=== PATIENT | female | born 1965 ===

== ENCOUNTER 2016-10-20 19:24 | Emergency (ER) | payer OTHER ==
[2016-10-20 19:35] VITALS: BMI 27.4
[2016-10-20 19:40] VITALS: BP 141/92; PULSE 62; RESP 18; TEMP 97.8; O2SAT 98
--- NOTE | 2016-10-20 20:11 | ED PDOC ---
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 Patient states 5 days ago she woke up with swelling redness and pruritus to both eyes. She denies new soaps lotions or detergents perfumes or medications. She denies recently dying her hair. Patient denies contact with animals. Patient denies any prior allergies to dogs/cats/environment. Patient denies pain in the eyes. She describes an irritation/burning sensation to both eyes as if something is in the eye. She denies contact usage. She denies any headache dizziness or weakness. She denies blurry vision. Patient states she had swelling to the eyes in the morning which has since decreased. Denies fevers or chills. Patient states she used drops to get the red out. She denies any other complaints Time/Duration: Other (5 days) Symptom Course: Unchanged Quality: Burning Severity Level: 2 Past Medical History - Provider Review Nursing Documentation Reviewed: Yes - Travel History Have you recently traveled outside [place] w/in the past 3 mons?: No - Past History Past History: No Previous - Infectious Disease Hx of Infectious Diseases: None - Reproductive Menopause: Yes - Cardiac Hx Cardiac Disorders: Yes Hx Hypertension: Yes - Pulmonary Hx Respiratory Disorders: No - Neurological Hx Neurological Disorder: No - HEENT Hx HEENT Disorder: No - Renal Hx Renal Disorder: Yes Other/Comment: Renal cyst - Endocrine/Metabolic Hx Diabetes Mellitus Type 2: Yes - Hematological/Oncological Hx Blood Disorders: No - Integumentary Hx Dermatological Disorder: No - Musculoskeletal/Rheumatological Hx Musculoskeletal Disorders: No - Gastrointestinal Hx Gastroesophageal Reflux: Yes Other/Comment: Gastric bypass. Liver problems. Transaminitis. Fatty Liver - Genitourinary/Gynecological Hx Genitourinary Disorders: Yes Other/Comment: Hysterectomy - Psychiatric Hx Psychophysiologic Disorder: No Hx Anxiety: No Hx Bipolar Disorder: No Hx Depression: Yes Hx Emotional Abuse: No Hx Hallucinations: No Hx Panic Disorder: No Hx Post Traumatic Stress Disorder: No Hx Psychosis: No Hx Physical Abuse: No Hx Schizophrenia: No Hx Sexual Abuse: No Hx Substance Use: No - Past Surgical History Past Surgical History: No Previous - Surgical History Hx Gastric Bypass Surgery: Yes (07/04) Hx Hysterectomy: Yes Other/Comment: OVARIES REMOVED - Anesthesia Hx Anesthesia: Yes Hx Anesthesia Reactions: No Hx Malignant Hyperthermia: No - Suicidal Assessment Feels Threatened In Home Enviroment: No Family/Social History - Physician Review Nursing Documentation Reviewed: Yes Family/Social History: Unknown Family HX Smoking Status: Never Smoked Hx Alcohol Use: No Hx Substance Use: No Hx Substance Use Treatment: No Allergies/Home Meds Allergies/Adverse Reactions: Allergies Penicillins Adverse Reaction (Verified 10/20/16 19:35) ANAPHYLAXIS Home Medications: Home Meds Medication Instructions Recorded Confirmed Amlodipine Besylate [Norvasc] 5 mg PO DAILY 05/23/12 08/25/15 FLUoxetine [Fluoxetine HCl] 20 mg PO DAILY 05/23/12 08/25/15 Lisinopril 40 mg PO DAILY 05/23/12 08/25/15 Metformin HCl [Metformin] 500 mg PO DAILY 05/23/12 08/25/15 Metoprolol Tartrate 100 mg PO DAILY 05/23/12 08/25/15 Pravastatin Sodium [Pravastatin] 20 mg PO HS 05/23/12 08/25/15 Ergocalciferol [Vitamin D] 1 tab PO Q7D 12/27/14 08/25/15 Sitagliptin Phosphate [Januvia] 100 mg PO DAILY 12/27/14 08/25/15 Insulin Glargine,Hum.rec.anlog 18 units SC HS 03/02/15 08/25/15 [Lantus] Insulin Lispro, Recombinant 6 units SC AC 03/02/15 08/25/15 [Humalog] Liraglutide [Victoza] 0.6 ml SC DAILY 03/02/15 08/25/15 Review of Systems - Review of Systems Constitutional: absent: Fatigue, Fevers Eyes: Eye Pain (eye irritation). absent: Vision Changes, Photophobia ENT: absent: Hearing Changes, Sore Throat, Sinus Congestion Respiratory: absent: SOB, Cough Cardiovascular: absent: Chest Pain, Palpitations Gastrointestinal: absent: Abdominal Pain, Nausea, Vomiting Genitourinary Female: absent: Dysuria Musculoskeletal: absent: Arthralgias Skin: Pruritis (both eyes). absent: Rash Psychiatric: absent: Anxiety, Depression Physical Exam Vital Signs Reviewed: Yes Vital Signs Temp Pulse Resp BP Pulse Ox 10/20/16 19:40 97.8 F 62 18 141/92 H 98 Temperature: Afebrile Blood Pressure: Hypertensive Pulse: Regular Respiratory Rate: Normal Appearance: Positive for: Well-Appearing, Non-Toxic, Comfortable Pain Distress: None Mental Status: Positive for: Alert and Oriented X 3 - Systems Exam Head: Present: Atraumatic Pupils: Present: PERRL Extroacular Muscles: Present: EOMI Conjunctiva: Present: Normal, Other (no corneal abrasion, no corneal ulceration , no dye uptake. no periorbital edema or erythema. ). No: Injected Ears: Present: Normal, NORMAL TM Mouth: Present: Moist Mucous Membranes Pharnyx: Present: Normal. No: ERYTHEMA, EXUDATE Nose (Internal): Present: Normal Inspection Neck: Present: Normal Range of Motion Respiratory/Chest: Present: Clear to Auscultation Cardiovascular: Present: Regular Rate and Rhythm Neurological: Present: GCS=15 Skin: Present: Warm, Dry, Normal Color. No: Rashes Psychiatric: Present: Alert, Oriented x 3 Medical Decision Making ED Course and Treatment: 10/20/16 20:17 Patient is nontoxic well appearing in no distress Visual acuity within normal limits bilateral eyes; no Conjunctival injection noted, no corneal abrasion or ulceration noted. no dye uptake. no periorbital edema. PERRLA, extraocular muscles intact will treat patient for conjunctivitis; will give abx and allergy eye drops; advised f/u with eye doctor within the next 2 days. return immediately if symptoms worsen,persist or if new symptoms develop. Patient verbalizes understanding of discharge instructions and need for immediate followup. all aspects of this case were discussed the attending of record. Impression: Conjunctivitis Tobrex: 2 drops in the affected eye 4 times daily x 7 days. Patanol; 1 drop in both eyes twice daily. Followup with the eye doctor within the next 2 days Return immediately if symptoms worsen persist or if new symptoms develop; blurry vision, worsening eye pain, worsening redness or any other concerning symptoms develop. Follow up with the primary care physician within the next 2 days Disposition/Present on Arrival - Present on Arrival Any Indicators Present on Arrival: No History of DVT/PE: No History of Uncontrolled Diabetes: No Urinary Catheter: No History of Decub. Ulcer: No History Surgical Site Infection Following: None - Disposition Have Diagnosis and Disposition been Completed?: Yes Diagnosis: Conjunctivitis Disposition: HOME/ ROUTINE Disposition Time: 20:24 Patient Plan: Discharge Condition: GOOD Discharge Instructions (ExitCare): Conjunctivitis (ED) Additional Instructions: Tobrex: 2 drops in the affected eye 4 times daily x 7 days. Patanol; 1 drop in both eyes twice daily. Followup with the eye doctor within the next 2 days Return immediately if symptoms worsen persist or if new symptoms develop; blurry vision, worsening eye pain, worsening redness or any other concerning symptoms develop. Follow up with the primary care physician within the next 2 days Prescriptions: Olopatadine 0.1% Opht [Patanol 5 Ml] 1 drop OU BID #1 bottle Tobramycin 0.3% [Tobramycin 5 Ml] 2 drop OU QID #1 bottle Referrals: Mark DE LA CRUZ,Ayde Garcia MD [Primary Care Provider] - Follow up with primary Roddy Carballo MD [Staff Provider] - Follow up with primary Forms: [employer] (Serbian), WORK NOTE
== END 2016-10-20 20:32 | disposition home or self-care (01) ==
LOC: ED 19:24
DX: H10.9 Unspecified conjunctivitis (principal)

== ENCOUNTER 2017-08-21 18:08 | Emergency (ER) | payer OTHER ==
[2017-08-21 18:26] VITALS: BMI 31.1
--- NOTE | 2017-08-21 18:26 | ED PDOC ---
Arrival/HPI - General Time Seen by Provider: 08/21/17 18:13 Historian: Patient - History of Present Illness Narrative History of Present Illness (Text): 08/21/17 18:23 52 y/o female, pmh including htn/hyperlipidemia/dm, post menopausal, penicillin allergy, c/o lower back/neck pain/headache s/p fall about 3 days ago. Pt. stated that she had a slipped and fall accident about 3 days ago, injured the lower back with and neck region with possible head injury which she had headache but resolved. Pt. stated for the past 2 days she noticed she abnormal movement of the rt. hand thumb region with no hand pain, no numbness or tingling , no change in vision, not shaking when active to perform grabbing an object. Pt. has no urinary or bowel incontinence or retention, no night sweat, no rash, no change in vision, no other medical or psychological complaints. Past Medical History - Provider Review Nursing Documentation Reviewed: Yes - Past History Past History: No Previous - Infectious Disease Hx of Infectious Diseases: None - Cardiac Hx Cardiac Disorders: Yes Hx Hypertension: Yes - Pulmonary Hx Respiratory Disorders: No - Neurological Hx Neurological Disorder: No - HEENT Hx HEENT Disorder: No - Renal Hx Renal Disorder: Yes Other/Comment: Renal cyst - Endocrine/Metabolic Hx Diabetes Mellitus Type 2: Yes - Hematological/Oncological Hx Blood Disorders: No - Integumentary Hx Dermatological Disorder: No - Musculoskeletal/Rheumatological Hx Musculoskeletal Disorders: No - Gastrointestinal Hx Gastroesophageal Reflux: Yes Other/Comment: Gastric bypass. Liver problems. Transaminitis. Fatty Liver - Genitourinary/Gynecological Hx Genitourinary Disorders: Yes Other/Comment: Hysterectomy - Psychiatric Hx Psychophysiologic Disorder: No Hx Anxiety: No Hx Bipolar Disorder: No Hx Depression: Yes Hx Emotional Abuse: No Hx Hallucinations: No Hx Panic Disorder: No Hx Post Traumatic Stress Disorder: No Hx Psychosis: No Hx Physical Abuse: No Hx Schizophrenia: No Hx Sexual Abuse: No Hx Substance Use: No - Past Surgical History Past Surgical History: No Previous - Surgical History Hx Gastric Bypass Surgery: Yes (07/04) Hx Hysterectomy: Yes Other/Comment: OVARIES REMOVED - Anesthesia Hx Anesthesia: Yes Hx Anesthesia Reactions: No Hx Malignant Hyperthermia: No - Suicidal Assessment Feels Threatened In Home Enviroment: No Family/Social History - Physician Review Nursing Documentation Reviewed: Yes Family/Social History: Unknown Family HX Smoking Status: Never Smoked Hx Alcohol Use: No Hx Substance Use: No Hx Substance Use Treatment: No Allergies/Home Meds Allergies/Adverse Reactions: Allergies Penicillins Adverse Reaction (Verified 10/20/16 19:35) ANAPHYLAXIS Home Medications: Home Meds Medication Instructions Recorded Confirmed FLUoxetine [Fluoxetine HCl] 20 mg PO DAILY 05/23/12 08/21/17 Metformin HCl [Metformin] 500 mg PO DAILY 05/23/12 08/21/17 Sitagliptin Phosphate [Januvia] 100 mg PO DAILY 12/27/14 08/21/17 Insulin Glargine,Hum.rec.anlog 18 units SC HS 03/02/15 08/21/17 [Lantus] Liraglutide [Victoza] 0.6 ml SC DAILY 03/02/15 08/21/17 Review of Systems - Review of Systems Constitutional: absent: Fatigue, Fevers Eyes: absent: Vision Changes ENT: absent: Hearing Changes Respiratory: absent: SOB, Cough Cardiovascular: absent: Chest Pain Gastrointestinal: absent: Abdominal Pain, Nausea, Vomiting Musculoskeletal: Back Pain, Neck Pain. absent: Arthralgias, Myalgias Skin: absent: Rash, Pruritis Neurological: absent: Headache, Dizziness Psychiatric: absent: Anxiety, Depression, Suicidal Ideation Physical Exam Vital Signs Reviewed: Yes Vital Signs Temp Pulse Resp BP Pulse Ox 08/21/17 18:13 97.1 F L 88 16 125/92 H 96 Temperature: Afebrile Blood Pressure: Hypertensive Pulse: Regular Respiratory Rate: Normal Appearance: Positive for: Well-Appearing, Non-Toxic, Comfortable Pain Distress: Mild Mental Status: Positive for: Alert and Oriented X 3 - Systems Exam Head: Present: Atraumatic, Normocephalic. No: Tenderness, Contusion, Swelling, Ecchymosis, Abrasion, Laceration, Other Pupils: Present: PERRL Extroacular Muscles: Present: EOMI Conjunctiva: Present: Normal Ears: Present: NORMAL TM, Normal Canal. No: Erythema Mouth: Present: Moist Mucous Membranes Pharnyx: Present: Normal. No: ERYTHEMA, EXUDATE, TONSILS ENLARGED Nose (External): Present: Atraumatic. No: Abrasion, Contusion, Laceration Nose (Internal): Present: Normal Inspection, No Active Bleeding. No: Rhinorrhea , Septal Deviation, Septal Hematoma, Epistaxis Neck: Present: Normal Range of Motion, Paraspinal Tenderness (bilateral paraspinal cervical tenderness), Trachea Midline. No: Meningeal Signs, MIDLINE TENDERNESS, Lymphadenopathy Respiratory/Chest: Present: Clear to Auscultation, Good Air Exchange. No: Respiratory Distress, Accessory Muscle Use Cardiovascular: Present: Regular Rate and Rhythm, Normal S1, S2. No: Murmurs Abdomen: No: Tenderness, Distention, Peritoneal Signs, Rebound, Guarding Back: Present: Normal Inspection, Other (LS spine: mild +ttp on the lower coccyx region with no lumbar spine tenderness or swelling, FROM without limitation, sensation intact, motor 5/5, no saddling gait, no focal neurological deficits. ). No: CVA Tenderness, Midline Tenderness, Paraspinal Tenderness, Pain with Leg Raise, Decubitus Ulcer Upper Extremity: Present: Normal Inspection, Normal ROM, NORMAL PULSES, Neurovascularly Intact, Capillary Refill < 2s, Norm 2-Pt Discrimination, Other ( Rt. upper extremity: no tenderness or swelling, no deformity, no redness, FROM without limitation, sensation intact, motor 5/5, +radial pulse, capillary refills< 2 seconds, neurovascular intact. ). No: Cyanosis, Edema, Tenderness, Swelling, Erythema, Temperature Abnormalties, Deformity Lower Extremity: Present: Normal Inspection, NORMAL PULSES, Normal ROM, Neurovascularly Intact, Capillary Refill < 2 s. No: Edema, Tenderness, Swelling , Deformity, Temperature Abnormalties Neurological: Present: GCS=15, CN II-XII Intact, Speech Normal, Motor Func Grossly Intact, Gait Normal, Memory Normal, Other (no drift, no focal neurological deficits, there is no active tremor or contracture noted on the bilateral hand and 10 finger digits including bilateral thumbs. ) Skin: Present: Warm, Dry, Normal Color. No: Rashes Lymphatic: No: Cervical Adenopathy Psychiatric: Present: Alert, Oriented x 3, Normal Insight, Normal Concentration Medical Decision Making ED Course and Treatment: 08/21/17 18:29 Differential: electrolyte imbalance vs. ICH vs. Cervical fracture vs. Coccyx fracture -labs -CT head/cervical -Coccyx/LS spine xray -Tylenol/valium -Observe and reassess 08/21/17 20:24 -CT head show No acute intracranial pathology or traumatic injury. -CT cervical show No acute C-spine traumatic injury. 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 -LS spine xray no fracture or subluxation -Coccyx xray no fracture or subluxation -Labs show no acute findings -Mg level within normal limit -Pt. has no abnormal rt. thumb contracture or movement in the ER, no visible dystonia. -Case discussed with Dr. Espinoza and CT results, suggest to discharge home with outpatient neurologist/MRI cervical follow up. -Discharge home with naproxen, flexeril, follow up with your own pmd and neurologist within 2 days, cervical MRI follow up, return to the ER for any new or worsening signs or symptoms. - Lab Interpretations Lab Results: 08/21/17 18:49 08/21/17 18:49 Lab Results 08/21/17 18:49: WBC 9.5 D, RBC 4.65, Hgb 12.9, Hct 38.8, MCV 83.4, MCH 27.7, MCHC 33.2, RDW 13.8, Plt Count 301, MPV 11.4 H, Gran % 57.7, Lymph % (Auto) 34.6 , [place]he % (Auto) 4.4, Eos % (Auto) 2.8, Baso % (Auto) 0.5, Gran # 5.45, Lymph # ( Auto) 3.3, [place]he # (Auto) 0.4, Eos # (Auto) 0.3, Baso # (Auto) 0.05 08/21/17 18:49: Sodium 144, Potassium 4.1, Chloride 103, Carbon Dioxide 28, Anion Gap 17, BUN 11, Creatinine 0.7, Est GFR ( Amer) > 60, Est GFR (Non- Af Amer) > 60, Random Glucose 108, Calcium 9.2, Magnesium 1.9, Total Bilirubin 0.2, AST 22, ALT 31, Alkaline Phosphatase 62, Total Creatine Kinase 123, Total Protein 8.0, Albumin 4.6, Globulin 3.4, Albumin/Globulin Ratio 1.4 - RAD Interpretation Radiology Orders: 08/21/17 18:33 CERVICAL SPINE W/O CONTRAST [CT] Stat HEAD W/O CONTRAST [CT] Stat SACRUM &/or COCCYX (MIN 2VW) [RAD] Stat 08/21/17 18:34 LS SPINE WITH OBL > 18 YRS OLD [RAD] Stat CT head: Brain: Unremarkable. Ventricles: Unremarkable. Bones/joints: Unremarkable. No acute fracture. Soft tissues: Unremarkable. Sinuses: Unremarkable as visualized. Mastoid air cells: Unremarkable as visualized. IMPRESSION: No acute intracranial pathology or traumatic injury. Thank you for allowing us to participate in the care of your patient. Dictated and Authenticated by: Winnie Kevin MD 08/21/2017 7:57 PM Eastern Time ([facility]) CT cervical spine: Vertebrae: Unremarkable. No acute fracture. Discs/spinal canal/neural foramina: Multilevel discogenic degenerative changes. Postoperative, moderate to severe canal stenosis at C2-3 results in marked chronic flattening of the cervical cord. Correlation with prior or followup noncontrast C-spine MRI are recommended. Soft tissues: Unremarkable. Lung apices: Unremarkable as visualized. IMPRESSION: No acute C-spine traumatic injury. 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 Thank you for allowing us to participate in the care of your patient. Dictated and Authenticated by: Winnie Kevin MD 08/21/2017 8:02 PM Eastern Time ([facility]) -- LS spine xray: ------- Coccyx xray: Needle Punch Operator: Radiologist - Medication Orders Current Medication Orders: Discontinued Medications Acetaminophen (Tylenol 325mg Tab) 650 mg PO STAT STA Stop: 08/21/17 18:35 Last Admin: 08/21/17 18:47 Dose: 650 mg MAR Pain/Vitals Document 08/21/17 18:47 LA (Rec: 08/21/17 18:48 LA [id number]) Sleep Is patient sleeping during reassessment? No Presence of Pain Presence of Pain Yes Pain Scale Used Pain Scale Used Numeric Location Left, Right or Bilateral Right Pain Location Body Site Finger Intensity 8 Scale Used Numeric Diazepam (Valium) 5 mg PO ONCE ONE PRN Reason: Protocol Stop: 08/21/17 18:35 Last Admin: 08/21/17 18:48 Dose: 5 mg - PA / SVP / Resident Statement MD/ has reviewed & agrees with the documentation as recorded. Disposition/Present on Arrival - Present on Arrival Any Indicators Present on Arrival: No History of DVT/PE: No History of Uncontrolled Diabetes: No Urinary Catheter: No History of Decub. Ulcer: No History Surgical Site Infection Following: None - Disposition Have Diagnosis and Disposition been Completed?: Yes Diagnosis: Fall, Neck pain, Back pain, Abnormal CT scan, cervical spine Disposition: HOME/ ROUTINE Disposition Time: 18:29 Patient Plan: Discharge Patient Problems: Current Active Problems Problem Status Onset Back pain Acute Fall Acute Neck pain Acute Condition: IMPROVED Additional Instructions: -Discharge home with naproxen, flexeril, follow up with your own pmd and neurologist within 2 days, cervical MRI follow up, return to the ER for any new or worsening signs or symptoms. Prescriptions: Cyclobenzaprine [Cyclobenzaprine HCl] 10 mg PO TID PRN #21 tab PRN Reason: Other Naproxen 500 mg PO BID PRN #20 tab PRN Reason: Other Referrals: Stephanie Dietrich MD [Primary Care Provider] - Follow up with primary Mac Fowler MD [Staff Provider] - Follow up with primary Forms: WORK NOTE
[2017-08-21 19:11] LABS: BASO # 0.05 K/mm3 (0.0-2.0); BASO % 0.5 % (0.0-3.0); EOS # 0.3 (0.0-0.7); EOS % 2.8 % (1.5-5.0); GRAN # 5.45 (1.4-6.5); GRAN % 57.7 % (50.0-68.0); HEMOGLOBIN 12.9 g/dL (12.0-16.0); LYMPH # 3.3 (1.2-3.4); LYMPH % 34.6 % (22.0-35.0); MEAN CELL VOLUME 83.4 fl (80.0-105.0); MEAN CORPUSCULAR HEMOGLOBIN 27.7 pg (25.0-35.0); MEAN CORPUSCULAR HGB CONC 33.2 g/dl (31.0-37.0); MEAN PLATELET VOLUME 11.4 fl (7.0-11.0); MONO # 0.4 (0.1-0.6); MONO % 4.4 % (1.0-6.0); RBC 4.65 10^6/uL (3.5-6.1); RED CELL DISTRIBUTION WIDTH 13.8 % (11.5-14.5); WHITE BLOOD COUNT 9.5 10^3/ul (4.5-11.0)
[2017-08-21 19:20] LABS: ALB/GLOB RATIO 1.4 (1.1-1.8); ALBUMIN 4.6 g/dL (3.0-4.8); ALT/SGPT 31 U/L (7-56); AST/SGOT 22 U/L (14-36); BLOOD UREA NITROGEN 11 mg/dL (7-21); CALCIUM 9.2 mg/dL (8.4-10.5); GFR AFRICAN-AMERICAN > 60; GFR NON-AFRICAN AMERICAN > 60
[2017-08-21 20:46] VITALS: BP 154/90; PULSE 75; RESP 18; TEMP 98; O2SAT 100
--- NOTE | 2017-08-22 08:36 | CT ---
PROCEDURE: CT HEAD WITHOUT CONTRAST. HISTORY: fall COMPARISON: 05/11/2016 TECHNIQUE: Axial computed tomography images were obtained through the head/brain without intravenous contrast. Radiation dose: Total exam DLP = 1013 mGy-cm. This CT exam was performed using one or more of the following dose reduction techniques: Automated exposure control, adjustment of the mA and/or kV according to patient size, and/or use of iterative reconstruction technique. FINDINGS: HEMORRHAGE: No intracranial hemorrhage. BRAIN: No mass effect or edema. No atrophy or chronic microvascular ischemic changes. VENTRICLES: Unremarkable. No hydrocephalus. CALVARIUM: Unremarkable. PARANASAL SINUSES: Unremarkable as visualized. No significant inflammatory changes. MASTOID AIR CELLS: Unremarkable as visualized. No inflammatory changes. OTHER FINDINGS: None. IMPRESSION: Normal CT of the Head.
--- NOTE | 2017-08-22 08:52 | CT ---
PROCEDURE: CT Cervical Spine without contrast HISTORY: fall and pain COMPARISON: None available. TECHNIQUE: Axial computed tomography images were obtained of the cervical spine without the use of intravenous contrast. Coronal and sagittal reformatted images were created and reviewed. Radiation dose: Total exam DLP = 619 mGy-cm. This CT exam was performed using one or more of the following dose reduction techniques: Automated exposure control, adjustment of the mA and/or kV according to patient size, and/or use of iterative reconstruction technique. FINDINGS: VERTEBRAE: No fracture. Normal alignment. No destructive bony lesion. DISCS/SPINAL CANAL/NEURAL FORAMINA: Multilevel discogenic degenerative changes and postoperative changes with [id number] central canal stenosis at C2-3 with marked chronic flattening of the cervical cord. PARASPINAL SOFT TISSUES: Unremarkable. OTHER FINDINGS: None. IMPRESSION: No acute fracture. Multilevel severe degenerative changes and spinal stenosis.
--- NOTE | 2017-08-22 10:36 | RAD ---
PROCEDURE: Radiographs of the Lumbar Spine. HISTORY: fall COMPARISON: No prior. FINDINGS: BONES: Normal alignment. No listhesis. No fracture. DISC SPACES: Unremarkable. OTHER FINDINGS: None. IMPRESSION: Unremarkable radiographs of the lumbar spine.
--- NOTE | 2017-08-22 10:37 | RAD ---
PROCEDURE: Radiographs of the Sacrum and Coccyx HISTORY: fall and pain COMPARISON: None available. TECHNIQUE: Frontal and lateral views of the sacrum and coccyx FINDINGS: BONES: Sacrum and coccyx unremarkable. No fracture or focal lesion. SACROILIAC JOINTS: Unremarkable. OTHER FINDINGS: None. IMPRESSION: Unremarkable radiographs of the sacrum and coccyx.
== END 2017-08-21 20:31 | disposition home or self-care (01) ==
LOC: ED 18:08
DX: M54.2 Cervicalgia (principal); M54.9 Dorsalgia, unspecified; W01.0XXA Fall on same level from slipping, tripping and stumbling without subsequent striking against object, initial encounter; Y92.9 Unspecified place or not applicable; R93.7 Abnormal findings on diagnostic imaging of other parts of musculoskeletal system

== ENCOUNTER 2017-10-25 09:57 | Emergency (ER) | payer OTHER ==
[2017-10-25 09:57] VITALS: BMI 31.1
--- NOTE | 2017-10-25 10:11 | ED PDOC ---
Arrival/HPI - General Time Seen by Provider: 10/25/17 10:07 Historian: Patient - History of Present Illness Narrative History of Present Illness (Text): 10/25/17 10:11 52 y/o female, pmh including htn/hyperlipidemia/niddm, post menopausal, hx of chronic lower back pain, come in for evaluation of diffuse lower back pain gradually developed for past week. Pt reports, pain is localized over lower back , non-radiating and worse with movement. Otherwise, pt denies fever, chills, recent new trauma or injury, sore throat, CP, SOB, dyspnea, abd. pain, N/V/D, UTi sx, saddle anesthesia, incontinence, denies weakness, sensory or vascular deficits to B/L LEs. Ambulate to Ed for evaluation, not in any apparent distress. Past Medical History - Provider Review Nursing Documentation Reviewed: Yes - Travel History Have you recently traveled outside [place] w/in the past 3 mons?: No - Infectious Disease Hx of Infectious Diseases: None - Tetanus Immunization Tetanus Immunization: Unknown - Cardiac Hx Cardiac Disorders: Yes Hx Hypertension: Yes - Pulmonary Hx Respiratory Disorders: No - Neurological Hx Neurological Disorder: No - HEENT Hx HEENT Disorder: No - Renal Hx Renal Disorder: Yes Other/Comment: Renal cyst - Endocrine/Metabolic Hx Diabetes Mellitus Type 2: Yes - Hematological/Oncological Hx Blood Disorders: No - Integumentary Hx Dermatological Disorder: No - Musculoskeletal/Rheumatological Hx Musculoskeletal Disorders: No - Gastrointestinal Hx Gastroesophageal Reflux: Yes Other/Comment: Gastric bypass. Liver problems. Transaminitis. Fatty Liver - Genitourinary/Gynecological Hx Genitourinary Disorders: Yes Other/Comment: Hysterectomy - Psychiatric Hx Psychophysiologic Disorder: No Hx Anxiety: No Hx Bipolar Disorder: No Hx Depression: Yes Hx Emotional Abuse: No Hx Hallucinations: No Hx Panic Disorder: No Hx Post Traumatic Stress Disorder: No Hx Psychosis: No Hx Physical Abuse: No Hx Schizophrenia: No Hx Sexual Abuse: No Hx Substance Use: No - Past Surgical History Past Surgical History: No Previous - Surgical History Hx Gastric Bypass Surgery: Yes (07/04) Hx Hysterectomy: Yes Other/Comment: OVARIES REMOVED - Anesthesia Hx Anesthesia: Yes Hx Anesthesia Reactions: No Hx Malignant Hyperthermia: No - Suicidal Assessment Feels Threatened In Home Enviroment: No Family/Social History - Physician Review Nursing Documentation Reviewed: Yes Family/Social History: No Known Family HX Smoking Status: Never Smoked Hx Alcohol Use: No Hx Substance Use: No Hx Substance Use Treatment: No Allergies/Home Meds Allergies/Adverse Reactions: Allergies Penicillins Adverse Reaction (Verified 10/20/16 19:35) ANAPHYLAXIS Home Medications: Home Meds Medication Instructions Recorded Confirmed FLUoxetine [Fluoxetine HCl] 20 mg PO DAILY 05/23/12 08/21/17 Metformin HCl [Metformin] 500 mg PO DAILY 05/23/12 08/21/17 Sitagliptin Phosphate [Januvia] 100 mg PO DAILY 12/27/14 08/21/17 Insulin Glargine,Hum.rec.anlog 18 units SC HS 03/02/15 08/21/17 [Lantus] Liraglutide [Victoza] 0.6 ml SC DAILY 03/02/15 08/21/17 Review of Systems - Review of Systems Constitutional: Normal Eyes: Normal ENT: Normal Respiratory: Normal Cardiovascular: Normal. absent: Chest Pain Gastrointestinal: Normal. absent: Abdominal Pain, Nausea, Vomiting Genitourinary Female: Normal. absent: Dysuria, Frequency, Hematuria, Vaginal Bleeding Musculoskeletal: Back Pain Skin: Normal. absent: Rash Neurological: Normal Endocrine: Normal Hemo/Lymphatic: Normal Psychiatric: Normal Physical Exam Vital Signs Reviewed: Yes Vital Signs Temp Pulse Resp BP Pulse Ox 10/25/17 11:24 60 18 134/86 97 10/25/17 10:22 76 18 157/58 H 98 10/25/17 10:07 97.9 F 77 18 146/113 H 98 Temperature: Afebrile Blood Pressure: Normal Pulse: Regular Respiratory Rate: Normal Appearance: Positive for: Well-Appearing, Non-Toxic, Comfortable Pain Distress: Moderate Mental Status: Positive for: Alert and Oriented X 3 - Systems Exam Conjunctiva: Present: Normal Mouth: Present: Moist Mucous Membranes Pharnyx: No: ERYTHEMA Neck: Present: Trachea Midline. No: Paraspinal Tenderness, JVD, Bruit Respiratory/Chest: Present: Clear to Auscultation, Good Air Exchange. No: Respiratory Distress, Accessory Muscle Use Cardiovascular: Present: Regular Rate and Rhythm, Normal S1, S2. No: Murmurs Abdomen: No: Tenderness, Distention, Peritoneal Signs, Rebound, Guarding Back: Present: Paraspinal Tenderness (diffuse lumbar extend up to B/L flank area. NO skin changes, no palpable deforrity.). No: CVA Tenderness, Midline Tenderness Upper Extremity: Present: Normal ROM. No: Deformity Lower Extremity: Present: Normal ROM. No: Edema, CALF TENDERNESS, Deformity Neurological: Present: GCS=15, Speech Normal, Motor Func Grossly Intact, Normal Sensory Function, Norm Deep Tendon Reflexes, Gait Normal Skin: Present: Warm, Dry, Normal Color. No: Rashes Psychiatric: Present: Alert, Oriented x 3, Normal Insight, Normal Concentration Medical Decision Making ED Course and Treatment: 10/25/17 10:50 On re-evaluation, pt is afebrile, hemodynamicaly stable. Non-toxic, tolerate Po well in ED. Ambulatory in ED with stable gait ENT: no acute findings Neck: Supple, (-) JVD, (-) meningeal sign Lungs: CTA B/L, BS equal B/L Abd: benign, (-) guarding, (-) rebound Back: (-) CVA tenderness. Neuorlogicaly intact. UA results review (+) WBC, RBC FSBS 130 Pt has clinical findings c/w lumbar radiculopathy, UTI. Pt advised on course of ds. ref. to f/u with PMD in 2-3 days for re-eval. return to ED if any worsening or new changes. - Lab Interpretations Lab Results: Lab Results 10/25/17 10:10: Urine Color Yellow, Urine Appearance Sl cloudy, Urine pH 6.0, Ur Specific Antlers 1.025, Urine Protein Negative, Urine Glucose (UA) Negative, Urine Ketones Negative, Urine Blood Trace-intact H, Urine Nitrate Negative, Urine Bilirubin Negative, Urine Urobilinogen 0.2, Ur Leukocyte Esterase Small H , Urine RBC 1 - 3, Urine WBC 5 - 10, Ur Epithelial Cells 6 - 8, Urine Bacteria Mod - Medication Orders Current Medication Orders: Discontinued Medications Nitrofurantoin Macrocrystals (Macrobid) 100 mg PO STAT STA PRN Reason: Protocol Stop: 10/25/17 10:49 Last Admin: 10/25/17 11:01 Dose: 100 mg Prednisone (Prednisone Tab) 60 mg PO STAT STA Stop: 10/25/17 10:49 Last Admin: 10/25/17 11:00 Dose: 60 mg Tramadol HCl (Ultram) 50 mg PO STAT STA Stop: 10/25/17 10:49 Last Admin: 10/25/17 11:00 Dose: 50 mg MAR Pain Assessment Document 10/25/17 11:00 EQ (Rec: 10/25/17 11:01 EQ [id number]) Pain Reassessment Is this a pain reassessment? No Sleep Is patient sleeping during reassessment? No Presence of Pain Presence of Pain Yes Pain Scale Used Pain Scale Used Numeric Location Upper or Lower Lower Pain Location Body Site Back Description Description Constant Intensity of Pain at present 9 Disposition/Present on Arrival - Present on Arrival Any Indicators Present on Arrival: No History of DVT/PE: No History of Uncontrolled Diabetes: No Urinary Catheter: No History Surgical Site Infection Following: None - Disposition Have Diagnosis and Disposition been Completed?: Yes Diagnosis: Urinary tract infection, Lumbar radiculopathy Disposition: HOME/ ROUTINE Disposition Time: 10:49 Patient Plan: Discharge Condition: STABLE Discharge Instructions (ExitCare): Urinary Tract Infections in Adults, Radiculopathy Print Language: [id number] Prescriptions: Gabapentin [Neurontin] 300 mg PO TID #14 cap Methocarbamol [Robaxin] 500 mg PO TID #14 tab Nitrofurantoin Macrocrystals [Macrobid] 1 cap PO BID #14 cap Prednisone [Deltasone] 40 mg PO DAILY 60 Days #3 tablet Referrals: Stephanie Dietrich MD [Primary Care Provider] - Follow up with primary Forms: [employer] (Estonian)
[2017-10-25 10:19] VITALS: RESP 18; TEMP 97.9
[2017-10-25 10:35] LABS: URINE BILIRUBIN NEGATIVE (NEGATIVE); URINE BLOOD TRACE-INTACT (NEGATIVE); URINE GLUCOSE (UA) NEGATIVE (NEGATIVE); URINE LEUKOCYTE ESTERASE SMALL Leu/uL (NEGATIVE); URINE PROTEIN NEGATIVE mg/dL (<30 mg/dL); URINE UROBILINOGEN 0.2 E.U./dL (<1 E.U./dL)
[2017-10-25 10:37] LABS: URINE APPEARANCE SL CLOUDY (CLEAR); URINE COLOR YELLOW (YELLOW)
[2017-10-25 10:41] LABS: URINE BACTERIA MOD (NEG)
[2017-10-25 11:25] VITALS: BP 134/86; PULSE 60; O2SAT 97
== END 2017-10-25 11:24 | disposition home or self-care (01) ==
LOC: ED 09:57
DX: N39.0 Urinary tract infection, site not specified (principal); M54.16 Radiculopathy, lumbar region; E78.5 Hyperlipidemia, unspecified; I10 Essential (primary) hypertension; E11.9 Type 2 diabetes mellitus without complications

== ENCOUNTER 2017-11-17 09:42 | Emergency (ER) | payer OTHER ==
[2017-11-17 09:42] VITALS: BMI 31.1
[2017-11-17 09:55] VITALS: PULSE 70; O2SAT 98
--- NOTE | 2017-11-17 10:50 | ED PDOC ---
Arrival/HPI - General Chief Complaint: Headache Time Seen by Provider: 11/17/17 09:58 Historian: Patient - History of Present Illness Narrative History of Present Illness (Text): 11/17/17 10:46 52-year-old female presents today with a frontal headache and left-sided neck pain radiating into left arm. pt denies chest pain or shortness of breath. pt denies palpitations. pt states she has been getting intermittent tingling in the RIGHT hand, but not the left. pt denies numbness, weakness or tingling in the lower extremities. no dizziness or weakness. pt states symptoms started this morning upon waking from sleep. no medications have been taken at home. pt denies trauma or injury. no abdominal pain. no vomiting/diarrhea. Time/Duration: Other (this AM) Symptom Onset: Gradual Symptom Course: Worsening Quality: Aching Severity Level: Mild Past Medical History - Provider Review Nursing Documentation Reviewed: Yes - Travel History Have you recently traveled outside [place] w/in the past 3 mons?: No - Past History Past History: No Previous - Infectious Disease Hx of Infectious Diseases: None - Tetanus Immunization Tetanus Immunization: Unknown - Reproductive Menopause: Yes - Cardiac Hx Cardiac Disorders: Yes Hx Hypertension: Yes - Pulmonary Hx Respiratory Disorders: No - Neurological Hx Neurological Disorder: No - HEENT Hx HEENT Disorder: No - Renal Hx Renal Disorder: Yes Other/Comment: Renal cyst - Endocrine/Metabolic Hx Diabetes Mellitus Type 2: Yes - Hematological/Oncological Hx Blood Disorders: No - Integumentary Hx Dermatological Disorder: No - Musculoskeletal/Rheumatological Hx Musculoskeletal Disorders: No - Gastrointestinal Hx Gastroesophageal Reflux: Yes Other/Comment: Gastric bypass. Liver problems. Transaminitis. Fatty Liver - Genitourinary/Gynecological Hx Genitourinary Disorders: Yes Other/Comment: Hysterectomy - Psychiatric Hx Psychophysiologic Disorder: No Hx Anxiety: No Hx Bipolar Disorder: No Hx Depression: Yes Hx Emotional Abuse: No Hx Hallucinations: No Hx Panic Disorder: No Hx Post Traumatic Stress Disorder: No Hx Psychosis: No Hx Physical Abuse: No Hx Schizophrenia: No Hx Sexual Abuse: No Hx Substance Use: No - Past Surgical History Past Surgical History: No Previous - Surgical History Hx Gastric Bypass Surgery: Yes (07/04) Hx Hysterectomy: Yes Other/Comment: OVARIES REMOVED - Anesthesia Hx Anesthesia: Yes Hx Anesthesia Reactions: No Hx Malignant Hyperthermia: No - Suicidal Assessment Feels Threatened In Home Enviroment: No Family/Social History - Physician Review Nursing Documentation Reviewed: Yes Family/Social History: Unknown Family HX Smoking Status: Never Smoked Hx Alcohol Use: No Hx Substance Use: No Hx Substance Use Treatment: No Allergies/Home Meds Allergies/Adverse Reactions: Allergies Penicillins Adverse Reaction (Verified 11/17/17 09:55) ANAPHYLAXIS Home Medications: Home Meds Medication Instructions Recorded Confirmed FLUoxetine [Fluoxetine HCl] 20 mg PO DAILY 05/23/12 11/17/17 Metformin HCl [Metformin] 500 mg PO BID 05/23/12 11/17/17 Sitagliptin Phosphate [Januvia] 100 mg PO DAILY 12/27/14 11/17/17 Insulin Glargine,Hum.rec.anlog 18 units SC HS 03/02/15 11/17/17 [Lantus] Liraglutide [Victoza] 0.6 ml SC DAILY 03/02/15 11/17/17 Atorvastatin [Lipitor] 20 mg PO DAILY 11/17/17 11/17/17 Metoprolol Tartrate [Lopressor] 50 mg PO BID 11/17/17 11/17/17 Pantoprazole [Protonix] 40 mg PO DAILY 11/17/17 11/17/17 Review of Systems - Review of Systems Constitutional: absent: Fatigue, Fevers Respiratory: absent: SOB, Cough Cardiovascular: absent: Chest Pain, Palpitations Gastrointestinal: Nausea. absent: Abdominal Pain, Constipation, Diarrhea, Vomiting Genitourinary Female: absent: Dysuria, Frequency, Hematuria Musculoskeletal: Back Pain, Neck Pain Skin: absent: Rash, Pruritis Neurological: Headache. absent: Dizziness Psychiatric: absent: Anxiety, Depression Physical Exam Vital Signs Reviewed: Yes Vital Signs Temp Pulse Resp BP Pulse Ox 11/17/17 14:19 98.2 F 70 16 128/68 98 11/17/17 09:48 97.8 F 70 18 133/84 98 Temperature: Afebrile Blood Pressure: Normal Pulse: Regular Respiratory Rate: Normal Appearance: Positive for: Well-Appearing, Non-Toxic, Comfortable Pain Distress: None Mental Status: Positive for: Alert and Oriented X 3 - Systems Exam Head: Present: Atraumatic Mouth: Present: Moist Mucous Membranes Neck: Present: Normal Range of Motion, Paraspinal Tenderness (+ left sided trapezius and paraspinal tenderness. ). No: MIDLINE TENDERNESS Respiratory/Chest: Present: Clear to Auscultation, Good Air Exchange. No: Respiratory Distress, Accessory Muscle Use, Wheezes, Rales, Retracting, Tender to Palpation Cardiovascular: Present: Regular Rate and Rhythm. No: Murmurs Abdomen: No: Tenderness, Distention, Rebound, Guarding Back: Present: Normal Inspection. No: Midline Tenderness Upper Extremity: Present: Normal Inspection, Normal ROM, NORMAL PULSES, Neurovascularly Intact, Capillary Refill < 2s. No: Tenderness, Swelling, Erythema, Deformity Lower Extremity: Present: Normal Inspection Neurological: Present: GCS=15, Speech Normal Skin: Present: Warm, Dry, Normal Color. No: Rashes Psychiatric: Present: Alert, Oriented x 3 Medical Decision Making ED Course and Treatment: 11/17/17 10:54 52yr old female with headache and left sided neck pain since this morning. ekg: sinus bradycardia with occasional PVC at 58b/m. no st elevations head ct: FINDINGS: HEMORRHAGE: No intracranial hemorrhage. BRAIN: Normal rodriguez-white matter differentiation and density are appreciated throughout the cerebrum and cerebellum with the brainstem appearing unremarkable as well. There is no mass effect. There is no suspicious extra-axial fluid collection and the midline brain anatomy appears diffusely unremarkable. VENTRICLES: Unremarkable. No hydrocephalus. CALVARIUM: No destructive bony lesion or displaced fracture identified including through the skullbase. PARANASAL SINUSES: Unremarkable as visualized. No significant inflammatory changes. MASTOID AIR CELLS: Unremarkable as visualized. No inflammatory changes. OTHER FINDINGS: None. IMPRESSION: Unremarkable noncontrast head CT. C-spine ct: ADDENDUM: Prior cervical spine CT dated 08/21/2017 has been retrieved for comparison and demonstrates stable appearing C3 and C6 vertebral body diminished height suggesting chronic fractures or more likely, normal variation. The remainder the examination appears stable as well. [ Addendum Report Added by Saeid You MD at 11/17/2017 12:44:34 ] FINDINGS: VERTEBRAE: Subtle reversal of cervical curvature without spondylolisthesis. The C3 and C6 vertebral bodies are diminished in height with C5 normally the smallest vertebral body in height overall. These may refer present fractures of indeterminate age or normal variants. No destructive bony lesion is identified throughout. The C1-2 articulation is mildly degenerated but otherwise intact. The C1-2 articulation appears intact. DISCS/SPINAL CANAL/NEURAL FORAMINA: Mild multilevel cervical spondylosis appreciated seen worst at the C4-5 level. There is a [id number] central canal stenosis identified at C2-3 due to limited disc bulging and ligamentum flavum hypertrophy. Limited disc bulging is seen at C3-4 and at C4-5, a disc osteophyte complex is asymmetrically greater the left and right sides as well as facet and uncovertebral joint arthropathy resulting in mild left yessi canal stenosis and left neural foraminal stenosis but no right neural foraminal stenosis. Borderline right yessi canal stenosis is identified. No additional stenosis identified throughout the remaining central canal and neural foramina levels. PARASPINAL SOFT TISSUES: Unremarkable. OTHER FINDINGS: None. IMPRESSION: 1. Slight reversal of upper cervical curvature with low diminished vertebral body height at C3 and C6 potentially reflecting fractures of indeterminate age without fragmentation. Alternatively, they may represent congenital variants. 2. Uird-rr-[id number] C2-3 degenerative central canal stenosis. 3. Mild asymmetric stenosis at C4-5 affecting left neural foramen and yessi canal more than at the right as discussed above. 4. Limited disc bulging C3-4. No gross disc herniation appreciable. MRI is more sensitive in evaluation of intervertebral discs and at staging fractures and can be performed if clinically warranted for follow-up. pt was given toradol and valium for pain; pt reassessment; pt non toxic well appearing; no distress. stable vitals feeling better. ambulates with steady gait; denies pain. discussed results in depth with patient using housekeeping staff telephone information clerk # [phone]. advised f/u with pmd and back specialist. advised f/u for possible outpatient MRI. advised immediate return if symptoms worsen, persist or if new symptoms develop. copy of CT report given to patient. Patient verbalizes understanding of discharge instructions and need for immediate followup. all aspects of this case were discussed the attending of record. impression: neck pain, strain, DJD spine motrin every 6 hours as needed for pain valium; 1 tablet every 8 hours as needed for muscle spasms; may cause drowsiness. follow up with the primary care physician within the next 2 days. follow up with the back specialist within the next 2 days return immediately if symptoms worsen, persist or if new symptoms develop. Reassessment Condition: Re-examined, Improved - RAD Interpretation Radiology Orders: 11/17/17 10:31 CERVICAL SPINE W/O CONTRAST [CT] Stat HEAD W/O CONTRAST [CT] Stat - Medication Orders Current Medication Orders: Discontinued Medications Diazepam (Valium) 5 mg PO ONCE ONE Stop: 11/17/17 12:33 Last Admin: 11/17/17 12:50 Dose: 5 mg Ketorolac Tromethamine (Toradol) 60 mg IM STAT STA Stop: 11/17/17 12:33 Last Admin: 11/17/17 12:50 Dose: 60 mg MAR Pain Assessment Document 11/17/17 12:50 (Rec: 11/17/17 12:51 [place] [id number]) Pain Reassessment Is this a pain reassessment? Yes Sleep Is patient sleeping during reassessment? No Presence of Pain Presence of Pain Yes IM Administration Charges Document 11/17/17 12:50 (Rec: 11/17/17 12:51 [place] [id number]) Charges for Administration # of IM Administrations 1 Disposition/Present on Arrival - Present on Arrival Any Indicators Present on Arrival: No History of DVT/PE: No History of Uncontrolled Diabetes: No Urinary Catheter: No History of Decub. Ulcer: No History Surgical Site Infection Following: None - Disposition Have Diagnosis and Disposition been Completed?: Yes Diagnosis: Neck pain, DJD (degenerative joint disease) of cervical spine Disposition: HOME/ ROUTINE Disposition Time: 13:00 Patient Plan: Discharge Condition: GOOD Discharge Instructions (ExitCare): Generalized Neck Pain Additional Instructions: motrin every 6 hours as needed for pain valium; 1 tablet every 8 hours as needed for muscle spasms; may cause drowsiness. follow up with the primary care physician within the next 2 days. follow up with the back specialist within the next 2 days return immediately if symptoms worsen, persist or if new symptoms develop. Prescriptions: diaZEpam [Valium] 2 mg PO Q8H PRN #6 tab PRN Reason: muscle spasms Ibuprofen [Motrin] 600 mg PO Q6H PRN #20 tab PRN Reason: pain/fever reduction Referrals: [facility] [place] [Outside] - Follow up with primary [facility] [Outside] - Follow up with primary Charmaine Jones MD [Medical Doctor] - Follow up with primary Des Doan MD [Staff Provider] - Follow up with primary Forms: [employer] ([place]), WORK NOTE
--- NOTE | 2017-11-17 11:45 | CT ---
Date of service: 11/17/2017 PROCEDURE: CT HEAD WITHOUT CONTRAST. HISTORY: frontal headache COMPARISON: Noncontrast head CT 08/21/2017. TECHNIQUE: Axial computed tomography images were obtained through the head/brain without intravenous contrast. Radiation dose: Total exam DLP = 909.78 mGy-cm. This CT exam was performed using one or more of the following dose reduction techniques: Automated exposure control, adjustment of the mA and/or kV according to patient size, and/or use of iterative reconstruction technique. FINDINGS: HEMORRHAGE: No intracranial hemorrhage. BRAIN: Normal rodriguez-white matter differentiation and density are appreciated throughout the cerebrum and cerebellum with the brainstem appearing unremarkable as well. There is no mass effect. There is no suspicious extra-axial fluid collection and the midline brain anatomy appears diffusely unremarkable. VENTRICLES: Unremarkable. No hydrocephalus. CALVARIUM: No destructive bony lesion or displaced fracture identified including through the skullbase. PARANASAL SINUSES: Unremarkable as visualized. No significant inflammatory changes. MASTOID AIR CELLS: Unremarkable as visualized. No inflammatory changes. OTHER FINDINGS: None. IMPRESSION: Unremarkable noncontrast head CT.
--- NOTE | 2017-11-17 11:51 | CT ---
Date of service: 11/17/2017 PROCEDURE: CT Cervical Spine without contrast HISTORY: Left sided neck pain COMPARISON: None available. TECHNIQUE: Axial computed tomography images were obtained of the cervical spine without the use of intravenous contrast. Coronal and sagittal reformatted images were created and reviewed. Radiation dose: Total exam DLP = 724.72 mGy-cm. This CT exam was performed using one or more of the following dose reduction techniques: Automated exposure control, adjustment of the mA and/or kV according to patient size, and/or use of iterative reconstruction technique. FINDINGS: VERTEBRAE: Subtle reversal of cervical curvature without spondylolisthesis. The C3 and C6 vertebral bodies are diminished in height with C5 normally the smallest vertebral body in height overall. These may refer present fractures of indeterminate age or normal variants. No destructive bony lesion is identified throughout. The C1-2 articulation is mildly degenerated but otherwise intact. The C1-2 articulation appears intact. DISCS/SPINAL CANAL/NEURAL FORAMINA: Mild multilevel cervical spondylosis appreciated seen worst at the C4-5 level. There is a rskv-yb-zxgzwcqs central canal stenosis identified at C2-3 due to limited disc bulging and ligamentum flavum hypertrophy. Limited disc bulging is seen at C3-4 and at C4-5, a disc osteophyte complex is asymmetrically greater the left and right sides as well as facet and uncovertebral joint arthropathy resulting in mild left yessi canal stenosis and left neural foraminal stenosis but no right neural foraminal stenosis. Borderline right yessi canal stenosis is identified. No additional stenosis identified throughout the remaining central canal and neural foramina levels. PARASPINAL SOFT TISSUES: Unremarkable. OTHER FINDINGS: None. IMPRESSION: 1. Slight reversal of upper cervical curvature with low diminished vertebral body height at C3 and C6 potentially reflecting fractures of indeterminate age without fragmentation. Alternatively, they may represent congenital variants. 2. Hfql-ex-bzwxcmkv C2-3 degenerative central canal stenosis. 3. Mild asymmetric stenosis at C4-5 affecting left neural foramen and yessi canal more than at the right as discussed above. 4. Limited disc bulging C3-4. No gross disc herniation appreciable. MRI is more sensitive in evaluation of intervertebral discs and at staging fractures and can be performed if clinically warranted for follow-up.
[2017-11-17 14:21] VITALS: BP 128/68; RESP 16; TEMP 98.2
--- NOTE | 2017-11-18 09:31 | CARD ---
APPROVED REPORT Date of service: 11/17/2017 EKG Measurement Heart [id number] MA 150P4 [id number] <Conclusion> Sinus bradycardia with haroldo premature ventricular complex RVCD LVH by voltage No change except one PVC now.
== END 2017-11-17 14:19 | disposition home or self-care (01) ==
LOC: ED 09:42
DX: M54.2 Cervicalgia (principal); M47.812 Spondylosis without myelopathy or radiculopathy, cervical region; E11.9 Type 2 diabetes mellitus without complications; I10 Essential (primary) hypertension
CPT/HCPCS: 70450; 72125; 93005; 96372; 99284; J1885